=== PATIENT | female | born 1965 | race Caucasian/White ===

== ENCOUNTER 2023-10-26 01:16 | Day surgery (SDC) | payer BC, SELFPAY ==
[2023-10-05 11:03] VITALS: BMI 26.6
[2023-10-26 11:32] VITALS: BP 132/73; PULSE 78; RESP 16; TEMP 36.2; O2SAT 99
[2023-10-26] MEDS: LACTATED RINGERS 1,000 ML 150 ML IV CONT ×2 (11:49→14:15)
--- NOTE | 2023-10-26 12:01 | WPDANESEPPF ---
Anes - Initial Pre Proc Eval Procedure: Operation Date: 10/26/23 13:00 Proposed Procedures p Screening Colonoscopy - Usama Ramos DO Date/Time: 10/26/23 12:01 Surgeon: Usama Ramos DO Pre Op Diagnosis: Screening for malignant neoplasm of colon Patient Data Age: 58 Gender: F Height: 1.7 m Weight: 85.6 kg Last Vital Signs Temp 97.2 F L 10/26/23 11:32 Pulse 78 10/26/23 11:32 Resp 16 10/26/23 11:32 BP 132/73 10/26/23 11:32 Pulse Ox 99 10/26/23 11:32 O2 Del Method Room Air 10/26/23 11:32 Allergies Allergy/AdvReac Type Severity Reaction Status Date / Time pollen extracts Allergy Unknown Unknown Verified 10/26/23 11:30 doxycycline Allergy Other Verified 10/26/23 11:30 Home Medications Medication Instructions Recorded Confirmed Type calcium carbonate 600 mg PO DAILY 07/31/22 10/26/23 History cholecalciferol (vitamin D3) 250 250 mcg PO .COMPLEX 07/31/22 10/26/23 History mcg (10,000 unit) capsule magnesium citrate 100 mg capsule 200 mg PO BID 07/31/22 10/26/23 History omega-3 fatty acids 500 mg capsule 1,500 mg PO DAILY 07/31/22 10/26/23 History vitamin B complex 1 cap PO BID 07/31/22 10/26/23 History esterified 1 tablet PO DAILY #90 tabs 07/30/23 10/26/23 Rx estrogens-methyltestosterone 1.25 mg-2.5 mg tablet niacin 400 mg (inositol niacinate 1 cap PO DAILY #90 caps 07/30/23 10/26/23 Rx 500 mg) capsule (Niacin Flush Free) Patient hx anesthesia problems: none Family hx anesthesia problems: none Results Review: All pre-operative results and documents have been reviewed as part of the pre-operative evaluation. [facility] Past Medical History Medical History Essential (primary) hypertension Hormone replacement therapy Mixed hyperlipidemia Family History Family History Mother Family history of thyroid disease Hypertension Patient's mother is in good health, Onset Age: 72 Father Hypertension Patient's father is in good health, Onset Age: 74 Family history of diabetes mellitus in first degree relative Family history of coronary artery disease Sibling Patient's sister is in good health, Onset Age: 48 Other Family history of malignant neoplasm of ovary Social History Social History Smoking status: Never smoker Alcohol use details: 2 per month Living arrangements: with family Spiritual care concerns: No Anes - Eval Final PreProcedure Day of Procedure 10/26/23 12:01 Patient weight: normal Heart: regular rate and rhythm Lungs: clear to auscultation Airway: Mallampati scale class II Neurological: alert and oriented Last oral intake: >/= 8 hours ASA classification: II Emergent: no Anesthetic plan: proceed Anesthesia type and monitoring: general GIVS and standard monitoring Results Review: All pre-operative results and documents have been reviewed as part of the pre-operative evaluation. Informed Consent: The patient's anesthetic plan and its attendant risks and benefits were discussed with the patient/family/POA. Questions were solicited and answers provided to the satisfaction of the patient/family/POA.
--- NOTE | 2023-10-26 13:28 | PM.IMHP ---
H&P: HPI History of Present Illness Date/Time: 10/26/23 13:28 Chief Complaint: screening for colorectal cancer Narrative: this is a 58-year-old woman who presents for colonoscopy. Her last colonoscopy was 10 years ago and was normal. She denies any hematochezia or melena. She denies any family history of colon cancer. Review of Systems Review of Systems: All systems reviewed & are unremarkable except as noted in HPI and below Constitutional: Constitutional: Denies chills, Denies fever(s), Denies headache(s) and Denies weight loss Eyes: Eyes: Denies change in vision ENT: Denies dizziness, Denies headache(s), Denies neck mass and Denies throat swelling Cardiovascular: Cardiovascular: Denies chest pain, Denies lightheadedness and Denies dyspnea Respiratory: Respiratory: Denies cough, Denies dyspnea and Denies wheezing Gastrointestinal: Gastrointestinal: Denies abdominal pain, Denies change in bowel habits, Denies nausea and Denies vomiting Genitourinary: Genitourinary: Denies hematuria and Denies dysuria Musculoskeletal: Musculoskeletal: Reports as per HPI Integumentary/Breasts: Skin/Breast: Reports as per HPI Neurologic: Denies dizziness and Denies headache(s) Allergic/Immunologic: Allergic/Immunologic: Denies throat swelling and Denies wheezing [facility] Past Medical History Medical History Essential (primary) hypertension Hormone replacement therapy Mixed hyperlipidemia Family History Family History Mother Family history of thyroid disease Hypertension Patient's mother is in good health, Onset Age: 72 Father Hypertension Patient's father is in good health, Onset Age: 74 Family history of diabetes mellitus in first degree relative Family history of coronary artery disease Sibling Patient's sister is in good health, Onset Age: 48 Other Family history of malignant neoplasm of ovary Social History Social History Smoking status: Never smoker Alcohol use details: 2 per month Living arrangements: with family Spiritual care concerns: No Meds Home Medications and Allergies Home Medications Medication Instructions Recorded Confirmed Type calcium carbonate 600 mg PO DAILY 07/31/22 10/26/23 History cholecalciferol (vitamin D3) 250 250 mcg PO .COMPLEX 07/31/22 10/26/23 History mcg (10,000 unit) capsule magnesium citrate 100 mg capsule 200 mg PO BID 07/31/22 10/26/23 History omega-3 fatty acids 500 mg capsule 1,500 mg PO DAILY 07/31/22 10/26/23 History vitamin B complex 1 cap PO BID 07/31/22 10/26/23 History esterified 1 tablet PO DAILY #90 tabs 07/30/23 10/26/23 Rx estrogens-methyltestosterone 1.25 mg-2.5 mg tablet niacin 400 mg (inositol niacinate 1 cap PO DAILY #90 caps 07/30/23 10/26/23 Rx 500 mg) capsule (Niacin Flush Free) Allergies Allergy/AdvReac Type Severity Reaction Status Date / Time pollen extracts Allergy Unknown Unknown Verified 10/26/23 11:30 doxycycline Allergy Other Verified 10/26/23 11:30 Vital Signs Vital Signs - 24 hr 10/26/23 11:32 Temperature 36.2 C L Pulse Rate 78 Respiratory Rate 16 Blood Pressure 132/73 Pulse Oximetry 99 Oxygen Delivery Room Air Exam Const: General: no acute distress and alert Orientation/consciousness: patient oriented x3 HENMT: Head: normocephalic and atraumatic Ears: hearing grossly normal bilaterally Face/Nose/Sinus: Normal nares present Mouth: Yes Normal oral and palatal mucosa present Eyes: Periorbital: periorbital findings normal Sclera: sclerae normal EOM: EOMs intact bilaterally Neck: Neck: normal visual inspection, no lymphadenopathy and trachea midline Chest: Chest palpation & inspection: normal inspection of the chest Resp: Effort & Inspection: normal respiratory effort Auscultation: clear to auscultation bilaterally
[2023-10-26 14:15] VITALS: BP 110/66; PULSE 66; RESP 16; O2SAT 100
[2023-10-26 14:25] VITALS: BP 124/75; PULSE 69; RESP 19; O2SAT 100
[2023-10-26 14:35] VITALS: BP 115/74; PULSE 64; RESP 15; O2SAT 97
== END 2023-10-26 14:49 | disposition home or self-care (01) ==
PROVIDERS: PCP Family Medicine; Visit Provider Surgery
PROC: 0DJD8ZZ Inspection of Lower Intestinal Tract, Via Natural or Artificial Opening Endoscopic (ICD-10-PCS; CPT 45378; principal; 2023-10-26 13:00)
DX: Z12.11 Encounter for screening for malignant neoplasm of colon (principal); K63.5 Polyp of colon; K62.1 Rectal polyp; K57.30 Diverticulosis of large intestine without perforation or abscess without bleeding; I10 Essential (primary) hypertension; E78.2 Mixed hyperlipidemia; Z79.890 Hormone replacement therapy
CPT/HCPCS: 45385; 88305; J2704; J7120